=== PATIENT | female | born 1925 | race Caucasian/White ===

== ENCOUNTER 2016-06-30 08:23 | Inpatient (IN) ==
--- NOTE | 2016-06-30 09:00 | Emergency Department Note ---
SOB HPI - General Chief Complaint: Shortness of Breath/Dyspnea Stated Complaint: Shortness of breath, cough Time Seen by Provider: 06/30/16 08:53 Source: EMS Mode of arrival: EMS Limitations: no limitations - History of Present Illness 89-year-old female who is brought in by EMS with a history of shortness of breath that she's had for last several days. She is very hard of hearing, history is obtained from the patient as well as the caregiver who is with her today. Caregiver called EMS today secondary to concerns about increased shortness of breath with any activity, also increased ankle swelling up. She does have a history of CHF. She normally gets around in her own home with a walker or a wheelchair, lives in her own home, has caregivers about 3 hours daily. Also has wound care come in once a day or once every few days for chronic lower leg ulcers. Denies any chest pain, or cough is nonproductive, she denies abdominal pain. Has had no nausea, vomiting or diarrhea. MD Complaint: shortness of breath - Related Data Home Medications Medication Instructions Recorded Confirmed aspirin 81 mg tablet,delayed 81 mg PO QDAY tab 10/05/14 06/30/16 release lisinopril 20 mg tablet 20 mg PO BID tab 10/05/14 06/30/16 metformin 500 mg tablet 500 mg PO QIDP tab 10/05/14 06/30/16 omega-3 fatty acids-fish oil 300 1 cap PO DAILY 10/05/14 06/30/16 mg-1,000 mg capsule,delayed release Furosemide [Lasix] 20 mg PO DAILY 06/30/16 06/30/16 Allergies Allergy/AdvReac Type Severity Reaction Status Date / Time lovastatin Allergy Intermediate Unknown Verified 06/30/16 08:34 Review of Systems All systems ED: reviewed and negative except as stated. Constitutional: Denies: fever, chills ENT ED: Denies: ear pain, throat pain Cardiovascular: Reports: dyspnea on exertion. Denies: chest pain Respiratory: Reports: cough Gastrointestinal: Denies: nausea, vomiting Genitourinary: Denies: dysuria Integumentary: Reports: rash, lesions Endocrine: Reports: fatigue Past Medical History - Past Medical History Medical history: Reports: arthritis (rheumatoid), CHF, diabetes, hyperlipidemia , hypertension, other (Hypertension, hypercholesterolemia, psoriasis, diabetes, hypertension. Past surgical historycataract surgery, left hip replacement) Surgical history ED: Reports: cataract, hip replacement, hysterectomy Family history: Reports: non-contributory - Social History smoking status: Former smoker Drug use: Reports: none Physical Exam - General Limitations: no limitations General appearance: alert, in no apparent distress - Head Head exam: atraumatic, normocephalic - Eye Eye exam: Present: normal appearance, PERRL, EOMI, conjunctival injection. Absent: periorbital tenderness - ENT ENT exam: normal exam, normal oropharynx - Neck Neck exam: Present: normal inspection, full ROM, trachea midline. Absent: tenderness, meningismus - Chest Chest inspection: Present: normal inspection, symmetric chest wall rise - Respiratory Respiratory exam: Present: respiratory distress, accessory muscle use, other ( Rales and rhonchi throughout) - Cardiovascular Cardiovascular exam: Present: regular rate, normal rhythm, systolic murmur, gallop - Abdominal Exam Abdominal exam: Present: soft, tenderness, normal bowel sounds, other ( cellulitic appearing pannus on the lower abdomen). Absent: distention, rigidity - Extremities Exam Extremities exam: Present: full ROM, pedal edema. Absent: calf tenderness - Back Exam Back exam: Present: normal inspection. Absent: CVA tenderness (R), CVA tenderness (L), paraspinal tenderness - Neurological Exam Neurological exam: Present: alert - Psychiatric Psychiatric exam: Present: normal affect - Skin Skin exam: Present: warm, dry, intact, rash, erythema, other (Skin rash to abdomen) Course - Reevaluation(s) Reevaluation #1: atient signed out to Dr. lyons 9 AM. Initial labs ordered, as well as chest x-ray and EKG. Vital Signs Temperature 98.9 F 06/30/16 08:24 Pulse Rate 74 06/30/16 08:24 Respiratory Rate 24 H 06/30/16 08:24 Blood Pressure 146/71 06/30/16 08:24 Pulse Oximetry (%) 97 06/30/16 08:24 Temperature 98.9 F 06/30/16 08:24 Pulse Rate 74 06/30/16 08:24 Respiratory Rate 24 H 06/30/16 08:24 Blood Pressure 146/71 06/30/16 08:24 Pulse Oximetry (%) 97 06/30/16 08:24 Disposition Referrals: Jennifer Franklin MD [Primary Care Provider] -
[2016-06-30] MEDS ORDERED: NITROGLYCERIN 1 GM OINT.TOP TD ONE (09:04)
[2016-06-30 09:44] LABS: Basophils # (Auto) 0 K/mcL (0.0-0.3); Basophils % (Auto) 0.2 % (0.0-2.0); Eosinophils # (Auto) 0.1 K/mcL (0.0-0.7); Granulocytes % (Auto) 85.5 % (38.0-78.0); Lymphocytes # (Auto) 0.3 K/mcL (1.5-4.8); Lymphocytes % (Auto) 4.8 % (15.5-49.0); Mean Cell Volume 90.8 fL (80.0-100.0); Mean Corpuscular HGB Conc 32.9 g/dL (31.0-36.0); Mean Corpuscular Hemoglobin 29.9 pg (26.0-34.0); Monocytes # (Auto) 0.5 K/mcL (0.1-0.9); Monocytes % (Auto) 7.5 % (1.0-12.0); Platelet Count 189 K/mcL (140-440); RBC 3.58 M/mcL (4.00-5.20); Red Cell Distribution Width 16.2 % (11.5-14.5)
--- NOTE | 2016-06-30 09:56 | XRay Report ---
CLINICAL INFORMATION: Cough TECHNIQUE: Upright PA and lateral chest x-ray COMPARISON: 01/26/2016, 01/24/2016, 05/05/2015 FINDINGS: Cardiomegaly, unchanged. Pulmonary vascularity is unremarkable. No pulmonary congestion. No pulmonary edema. There are bilateral pleural effusions, right larger than left. These are both small. No focal pulmonary parenchymal infiltrate. No evidence for pneumonia. No discrete pulmonary parenchymal mass. No interval change. 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 IMPRESSION: 1. Cardiomegaly. No pulmonary edema or significant pulmonary congestion 2. Bilateral small pleural effusions, right larger than left 3. No acute or focal pulmonary parenchymal consolidation Interpreted and Authenticated by: Ezekiel Jonas 06/30/16
[2016-06-30 10:13] LABS: ALT/SGPT 50 U/l (0-40); Albumin 3.6 gm/dL (3.2-5.2); Albumin/Globulin Ratio 1.5 (1.0-2.3); Alkaline Phosphatase 102 U/L (39-117); Blood Urea Nitrogen 26 mg/dl (8-23)
[2016-06-30 11:25] LABS: Appearance,Urine HAZY; Bacteria,Urine FEW /hpf (0); Bilirubin,Urine NEG (NEG); Color,Urine YELLOW; Glucose,Urine (UA) NEGATIVE (NEG); Leukocyte Esterase,Urine 500 /uL (NEG); Mucus,Urine FEW /hpf (0); Nitrate,Urine POS (NEG); Protein,Urine NEG (NEG); Specific Gravity,Urine 1.008 (1.000-1.035); Urine Blood 0.03 mg/dL (<0.03); Urine Hyaline Cast 5 /lpf (0-2); Urine RBC 2 /hpf (0-1); Urine Squamous Epithelial Cell 2 /hpf (0-4); Urine WBC 61 /hpf (0-4); Urobilinogen,Urine NEG (NEG)
[2016-06-30] MEDS ORDERED: SULFAMETHOXAZOLE/TRIMETHOPRIM 1 TABLET PO ONE (11:44)
--- NOTE | 2016-06-30 11:45 | Emergency Department Note ---
SOB HPI - General Chief Complaint: Shortness of Breath/Dyspnea Stated Complaint: Shortness of breath, cough Time Seen by Provider: 06/30/16 08:53 Source: EMS Mode of arrival: EMS Limitations: no limitations - Related Data Home Medications Medication Instructions Recorded Confirmed aspirin 81 mg tablet,delayed 81 mg PO QDAY tab 10/05/14 06/30/16 release lisinopril 20 mg tablet 20 mg PO BID tab 10/05/14 06/30/16 metformin 500 mg tablet 500 mg PO QIDP tab 10/05/14 06/30/16 omega-3 fatty acids-fish oil 300 1 cap PO DAILY 10/05/14 06/30/16 mg-1,000 mg capsule,delayed release Furosemide [Lasix] 20 mg PO DAILY 06/30/16 06/30/16 Previous Rx's Medication Instructions Recorded Sulfamethoxazole/Trimethoprim 1 tab PO BID #15 tablet 06/30/16 [Bactrim Ds] Allergies Allergy/AdvReac Type Severity Reaction Status Date / Time lovastatin Allergy Intermediate Unknown Verified 06/30/16 08:34 Review of Systems Constitutional: Denies: fever, chills ENT ED: Denies: ear pain, throat pain Cardiovascular: Reports: dyspnea on exertion. Denies: chest pain Respiratory: Reports: cough Gastrointestinal: Denies: nausea, vomiting Genitourinary: Denies: dysuria Integumentary: Reports: rash, lesions Endocrine: Reports: fatigue Past Medical History - Past Medical History Medical history: Reports: arthritis (rheumatoid), CHF, diabetes, hyperlipidemia , hypertension, other (Hypertension, hypercholesterolemia, psoriasis, diabetes, hypertension. Past surgical historycataract surgery, left hip replacement) Surgical history ED: Reports: cataract, hip replacement, hysterectomy - Social History Drug use: Reports: none Physical Exam - General Limitations: no limitations General appearance: alert, in no apparent distress Course Vital Signs Temperature 98.9 F 06/30/16 08:24 Pulse Rate 74 06/30/16 08:24 Respiratory Rate 24 H 06/30/16 08:24 Blood Pressure 146/71 06/30/16 08:24 Pulse Oximetry (%) 97 06/30/16 08:24 Temperature 98.9 F 06/30/16 08:24 Pulse Rate 71 06/30/16 12:01 Respiratory Rate 20 06/30/16 12:01 Blood Pressure 156/71 06/30/16 12:01 Pulse Oximetry (%) 92 06/30/16 12:01 Shortness of Breath/Dyspnea - [facility] Narrative Medical decision making narrative: Patient's O2 saturation was in the mid 80s off oxygen. She seemed comfortable to come in because of shortness of breath for 3 days and edema and does have a elevated BNP. We will go ahead and admit her to the hospital for congestive heart failure. - Lab Data Lab results reviewed: Yes I reviewed the patient's lab results. Result diagrams: 06/30/16 09:03 06/30/16 09:13 Lab Results 06/30/16 06/30/16 06/30/16 Range/Units 09:03 09:13 09:13 WBC 6.8 (4.5-11.0) K/mcL RBC 3.58 L (4.00-5.20) M/mcL Hgb 10.7 L (12.0-15.0) g/dL Hct 32.5 L (36.0-48.0) % MCV 90.8 (80.0-100.0) fL MCH 29.9 (26.0-34.0) pg MCHC 32.9 (31.0-36.0) g/dL RDW 16.2 H (11.5-14.5) % Plt Count 189 (140-440) K/mcL MPV 11.9 H (7.4-10.4) fL Gran % 85.5 H (38.0-78.0) % Lymph % (Auto) 4.8 L (15.5-49.0) % [place] % (Auto) 7.5 (1.0-12.0) % Eos % (Auto) 2.0 (0.0-7.0) % Baso % (Auto) 0.2 (0.0-2.0) % Gran # 5.8 (1.8-8.0) K/mcL Lymph # 0.3 L (1.5-4.8) K/mcL [place] # 0.5 (0.1-0.9) K/mcL Eos # 0.1 (0.0-0.7) K/mcL Baso # 0 (0.0-0.3) K/mcL Sodium 141 (133-145) mmol/L Potassium 4.6 (3.3-5.1) mmol/L Chloride 103 (96-108) mmol/L Carbon Dioxide 24 (22-30) mmol/L Anion Gap 14.0 (8-16) BUN 26 H (8-23) mg/dl Creatinine 0.8 (0.6-1.1) mg/dl GFR Calculation 65 Glucose 161 H (70-105) mg/dL Calcium 9.2 (8.6-10.4) mg/dl Total Bilirubin 0.5 (0.0-1.0) mg/dL AST 42 H (0-37) U/l ALT 50 H (0-40) U/l Alkaline Phosphatase 102 (39-117) U/L Troponin T < 0.01 (0-0.03) ng/ml NT-Pro-B Natriuret Pep 64718.0 H (0-450) pg/ml Total Protein 6.0 (5.9-8.4) gm/dL Albumin 3.6 (3.2-5.2) gm/dL Globulin 2.4 (2.2-3.7) gm/dL Albumin/Globulin Ratio 1.5 (1.0-2.3) Urine Color Urine Appearance Urine pH (5.0-9.0) Ur Specific [place] (1.000-1.035) Urine Protein (NEG) mg/dL Urine Glucose (UA) (NEG) mg/dL Urine Ketones (NEG) mg/dL Urine Occult Blood (<0.03) mg/dL Urine Nitrate (NEG) Urine Bilirubin (NEG) mg/dL Urine Urobilinogen (NEG) mg/dL Ur Leukocyte Esterase (NEG) /uL Urine RBC (0-1) /hpf Urine WBC (0-4) /hpf Ur Squamous Epith Cells (0-4) /hpf Urine Bacteria (0) /hpf Hyaline Casts (0-2) /lpf Urine Mucus (0) /hpf Ur Culture Indicated? 06/30/16 Range/Units 10:36 WBC (4.5-11.0) K/mcL RBC (4.00-5.20) M/mcL Hgb (12.0-15.0) g/dL Hct (36.0-48.0) % MCV (80.0-100.0) fL MCH (26.0-34.0) pg MCHC (31.0-36.0) g/dL RDW (11.5-14.5) % Plt Count (140-440) K/mcL MPV (7.4-10.4) fL Gran % (38.0-78.0) % Lymph % (Auto) (15.5-49.0) % [place] % (Auto) (1.0-12.0) % Eos % (Auto) (0.0-7.0) % Baso % (Auto) (0.0-2.0) % Gran # (1.8-8.0) K/mcL Lymph # (1.5-4.8) K/mcL [place] # (0.1-0.9) K/mcL Eos # (0.0-0.7) K/mcL Baso # (0.0-0.3) K/mcL Sodium (133-145) mmol/L Potassium (3.3-5.1) mmol/L Chloride (96-108) mmol/L Carbon Dioxide (22-30) mmol/L Anion Gap (8-16) BUN (8-23) mg/dl Creatinine (0.6-1.1) mg/dl GFR Calculation Glucose (70-105) mg/dL Calcium (8.6-10.4) mg/dl Total Bilirubin (0.0-1.0) mg/dL AST (0-37) U/l ALT (0-40) U/l Alkaline Phosphatase (39-117) U/L Troponin T (0-0.03) ng/ml NT-Pro-B Natriuret Pep (0-450) pg/ml Total Protein (5.9-8.4) gm/dL Albumin (3.2-5.2) gm/dL Globulin (2.2-3.7) gm/dL Albumin/Globulin Ratio (1.0-2.3) Urine Color Yellow Urine Appearance Hazy Urine pH 5.0 (5.0-9.0) Ur Specific [place] 1.008 (1.000-1.035) Urine Protein Neg (NEG) mg/dL Urine Glucose (UA) Negative (NEG) mg/dL Urine Ketones Neg (NEG) mg/dL Urine Occult Blood 0.03 A (<0.03) mg/dL Urine Nitrate Pos A (NEG) Urine Bilirubin Neg (NEG) mg/dL Urine Urobilinogen Neg (NEG) mg/dL Ur Leukocyte Esterase 500 A (NEG) /uL Urine RBC 2 H (0-1) /hpf Urine WBC 61 H (0-4) /hpf Ur Squamous Epith Cells 2 (0-4) /hpf Urine Bacteria Few A (0) /hpf Hyaline Casts 5 H (0-2) /lpf Urine Mucus Few (0) /hpf Ur Culture Indicated? Yes - Radiology Data Chest x-ray read as cardiomegaly without heart failure Disposition Clinical Impression: Urinary tract infection, Candidiasis, Congestive heart failure Disposition: Xfer As Inpt ([facility]) Prescriptions: Sulfamethoxazole/Trimethoprim [Bactrim Ds] 1 tab PO BID #15 tablet Referrals: Jennifer Franklin MD [Primary Care Provider] - Time of Disposition: 12:00
--- NOTE | 2016-06-30 12:56 | Internal Med History&Physical ---
Medical - H&P: HPI Patient information: Note initiated : 06/30/16 at 12:45 pm Patient: Raisa Sharma 89 y/o F admitted on for Shortness of breath, cough. Chief complaint: shortness of breath History of present illness: Ms. Sharma is a 89 year old female with a history of coronary disease, diabetes ,CHF. She presents to the emergency room complaining of shortness of breath for the last 3 days. ER evaluation reports O2 saturations in the low 80s on room air elevated BNP, negative troponin. Urinalysis also shows evidence of ongoing UTI. Her caregiver reportedly asks that she be placed in a halfway regarding level of care. the patient reports that she caught a cold about 3 weeks ago and has never gotten rid of the cough. -she was having enough trouble breathing today, that her caregiver convinced her to come to the emergency room for evaluation. She thinks she has had some chills and some fever, but not consistent. She did have a very sore throat, but that has improved. she says she feels like she is bringing up something with her cough, but is never able to spit anything out. She denies feeling significantly short of breath, but her caregiver reports she has been sleeping upright lately. The patient denies diarrhea, but the caregiver reportsher stools have been very looseever [facility] The patient complains of early satiety ever since then, and prudenceshe feels full after just a few bites. -her baseline, according to her caregiver, is that she really doesn't walk much. She says at most, she will walk about 100 feet but her preference isto transfer from bed to wheelchair and wheelchair to commode, and otherwise spend most of her timein the wheelchair. She has several caregivers that come into her home There is one there for 12 hours in the evening, and another that is there for a few hours in the morning and another who often stops by in the evening. Otherwise, the patient denies significant changes and eye or ear symptoms, painful sinuses, chest pain or palpitations, nausea or vomiting constipation or rectal bleeding, or dysuria. -the patient has been followed by Dr. Albarran of wound care for leg ulcers that started after her last admission where she had falls and skin tears. She says she has been released by Dr. Albarran but a home health nurse still comes in once a week to address her right giraldo shallow ulcer as well as a small sacral decubitus ulcer. her caregiver reports that she is often incontinent of urine and and wears depends and often refuses to be changedmore than 3 times a day Today,the patient declines Hall catheter as she is sure this will do more harm than good. past medical history: admission January 2016 for decompensated CHF, complicated UTI, iron deficiency anemia ,lower extremity skin tears after fall with cellulitis. coronary artery disease CHF Neuropathy Hypertension Type 2 diabetes DJD rheumatoid arthritis Hyperlipidemia Psoriasis? renal insufficiency Obesity Uterine cancer Mild memory loss Pneumonia, April 2015 surgical history: Cataract surgery, left hip replacement, hysterectomy Current medications;the patient does not bring a list in with her so is a little bit uncertain: lisinopril 20 mg twice a day Aspirin 81 mg daily Lasix 20 mg daily Fish oil 1000 mg daily Metformin 500 mg 4 times a day 1 dose of BactrimDS was given by mouth in the emergency room She previously took amitriptyline for neuropathy, but thinks she no longer takes that. Glipizide 5 mg every morning hydrocodoneTylenol, rarely for pain She is unsure if she takes HCTZ Multivitamin daily Red yeast rice 2 capsules daily allergies: Lovastatin Social history:The patient apparently lives in her own home with a visiting caregiver. She denies history of alcohol, drug use. the patient smoked for 10 years, and quit in 1991. She is a .Her son lives in [place], and she has no local family. family history: mother had lung cancer; father had COPDandsome kind of kidney disease; siblings had kidney disease Medical - H&P: Meds Home Medications Medication Instructions Recorded Confirmed Type aspirin 81 mg tablet,delayed 81 mg PO QDAY tab 10/05/14 06/30/16 History release lisinopril 20 mg tablet 20 mg PO DAILY tab 10/05/14 06/30/16 History metformin 500 mg tablet 500 mg PO QIDP tab 10/05/14 06/30/16 History omega-3 fatty acids-fish oil 300 1 cap PO DAILY 10/05/14 06/30/16 History mg-1,000 mg capsule,delayed release Furosemide [Lasix] 20 mg PO DAILY 06/30/16 06/30/16 History HYDROcodone/ACETAMINOPHEN 1 tab PO TIDP PRN 06/30/16 06/30/16 History [Hydrocodon-Acetaminophen 5-325] Multivitamin [Multi-Day Vitamins] 1 tab PO DAILY 06/30/16 06/30/16 History Red Yeast Rice 1 cap PO HS 06/30/16 06/30/16 History glipiZIDE [Glucotrol] 5 mg PO DAILY 06/30/16 06/30/16 History Allergies Allergy/AdvReac Type Severity Reaction Status Date / Time lovastatin Allergy Intermediate Cramping Verified 06/30/16 15:32 of the Muscles tramadol AdvReac Verified 06/30/16 15:08 Medical - H&P: Exam - Constitutional Vitals: Temp Pulse Resp BP Pulse Ox 98.9 F 71 20 156/71 95 06/30/16 08:24 06/30/16 12:01 06/30/16 12:01 06/30/16 12:01 06/30/16 12:32 on exam, this is an overweight, elderly white female in no acute distress. She is extremely hard of hearing head: Normocephalic, atraumatic Eyes: PERRLA, EOMI, anicteric. Normal conjunctiva. Ears: Left TM is clear. Right canal is clear. There seems to be an old TM perforation. Pharynx: She has an upper plate in place She is missing quite a few teeth in the lower jaw. Posterior pharynx is not well seen. neck: Appears supple, without obvious JVD thyromegaly, lymphadenopathy, bruits. Cardiac exam: Shows regular rate and rhythm with a 3/6 systolic ejection murmur heard throughout the precordium. No rubs or gallops are noted. Lungs: She has a few crackles at bases but otherwise no significant rhonchi or wheezes. Abdomen:Is obese, with some mild vague tenderness to palpation. There is no guarding or rebound. Bowel sounds are active. Extremities:She has about 1+edema of the lower legs. There is also a shallow ulcer noted of her right giraldo. Skin:Shows a pink rash in her skin folds in the groin and under her pannus. Neurologic exam: She is alert and oriented, and quite interactive. She is extremely hard of hearing. Motor exam is grossly nonfocal. Medical - H&P: Reslt - Labs CBC & Chem 7: 06/30/16 09:03 06/30/16 09:13 Labs: Short CBC 06/30/16 06/30/16 06/30/16 Range/Units 09:03 09:13 09:13 WBC 6.8 (4.5-11.0) K/mcL RBC 3.58 L (4.00-5.20) M/mcL Hgb 10.7 L (12.0-15.0) g/dL Hct 32.5 L (36.0-48.0) % MCV 90.8 (80.0-100.0) fL MCH 29.9 (26.0-34.0) pg MCHC 32.9 (31.0-36.0) g/dL RDW 16.2 H (11.5-14.5) % Plt Count 189 (140-440) K/mcL MPV 11.9 H (7.4-10.4) fL Gran % 85.5 H (38.0-78.0) % Lymph % (Auto) 4.8 L (15.5-49.0) % [place] % (Auto) 7.5 (1.0-12.0) % Eos % (Auto) 2.0 (0.0-7.0) % Baso % (Auto) 0.2 (0.0-2.0) % Gran # 5.8 (1.8-8.0) K/mcL Lymph # 0.3 L (1.5-4.8) K/mcL [place] # 0.5 (0.1-0.9) K/mcL Eos # 0.1 (0.0-0.7) K/mcL Baso # 0 (0.0-0.3) K/mcL Sodium 141 (133-145) mmol/L Potassium 4.6 (3.3-5.1) mmol/L Chloride 103 (96-108) mmol/L Carbon Dioxide 24 (22-30) mmol/L Anion Gap 14.0 (8-16) BUN 26 H (8-23) mg/dl Creatinine 0.8 (0.6-1.1) mg/dl GFR Calculation 65 Glucose 161 H (70-105) mg/dL Calcium 9.2 (8.6-10.4) mg/dl Total Bilirubin 0.5 (0.0-1.0) mg/dL AST 42 H (0-37) U/l ALT 50 H (0-40) U/l Alkaline Phosphatase 102 (39-117) U/L Troponin T < 0.01 (0-0.03) ng/ml NT-Pro-B Natriuret Pep 61505.0 H (0-450) pg/ml Total Protein 6.0 (5.9-8.4) gm/dL Albumin 3.6 (3.2-5.2) gm/dL Globulin 2.4 (2.2-3.7) gm/dL Albumin/Globulin Ratio 1.5 (1.0-2.3) Urine Color Urine Appearance Urine pH (5.0-9.0) Ur Specific Fate (1.000-1.035) Urine Protein (NEG) mg/dL Urine Glucose (UA) (NEG) mg/dL Urine Ketones (NEG) mg/dL Urine Occult Blood (<0.03) mg/dL Urine Nitrate (NEG) Urine Bilirubin (NEG) mg/dL Urine Urobilinogen (NEG) mg/dL Ur Leukocyte Esterase (NEG) /uL Urine RBC (0-1) /hpf Urine WBC (0-4) /hpf Ur Squamous Epith Cells (0-4) /hpf Urine Bacteria (0) /hpf Hyaline Casts (0-2) /lpf Urine Mucus (0) /hpf Ur Culture Indicated? 06/30/16 Range/Units 10:36 WBC (4.5-11.0) K/mcL RBC (4.00-5.20) M/mcL Hgb (12.0-15.0) g/dL Hct (36.0-48.0) % MCV (80.0-100.0) fL MCH (26.0-34.0) pg MCHC (31.0-36.0) g/dL RDW (11.5-14.5) % Plt Count (140-440) K/mcL MPV (7.4-10.4) fL Gran % (38.0-78.0) % Lymph % (Auto) (15.5-49.0) % [place] % (Auto) (1.0-12.0) % Eos % (Auto) (0.0-7.0) % Baso % (Auto) (0.0-2.0) % Gran # (1.8-8.0) K/mcL Lymph # (1.5-4.8) K/mcL [place] # (0.1-0.9) K/mcL Eos # (0.0-0.7) K/mcL Baso # (0.0-0.3) K/mcL Sodium (133-145) mmol/L Potassium (3.3-5.1) mmol/L Chloride (96-108) mmol/L Carbon Dioxide (22-30) mmol/L Anion Gap (8-16) BUN (8-23) mg/dl Creatinine (0.6-1.1) mg/dl GFR Calculation Glucose (70-105) mg/dL Calcium (8.6-10.4) mg/dl Total Bilirubin (0.0-1.0) mg/dL AST (0-37) U/l ALT (0-40) U/l Alkaline Phosphatase (39-117) U/L Troponin T (0-0.03) ng/ml NT-Pro-B Natriuret Pep (0-450) pg/ml Total Protein (5.9-8.4) gm/dL Albumin (3.2-5.2) gm/dL Globulin (2.2-3.7) gm/dL Albumin/Globulin Ratio (1.0-2.3) Urine Color Yellow Urine Appearance Hazy Urine pH 5.0 (5.0-9.0) Ur Specific Fate 1.008 (1.000-1.035) Urine Protein Neg (NEG) mg/dL Urine Glucose (UA) Negative (NEG) mg/dL Urine Ketones Neg (NEG) mg/dL Urine Occult Blood 0.03 A (<0.03) mg/dL Urine Nitrate Pos A (NEG) Urine Bilirubin Neg (NEG) mg/dL Urine Urobilinogen Neg (NEG) mg/dL Ur Leukocyte Esterase 500 A (NEG) /uL Urine RBC 2 H (0-1) /hpf Urine WBC 61 H (0-4) /hpf Ur Squamous Epith Cells 2 (0-4) /hpf Urine Bacteria Few A (0) /hpf Hyaline Casts 5 H (0-2) /lpf Urine Mucus Few (0) /hpf Ur Culture Indicated? Yes [facility] 06/30/16 09:13 Sodium 141 Potassium 4.6 Chloride 103 Carbon Dioxide 24 BUN 26 H Creatinine 0.8 Glucose 161 H Calcium 9.2 Cardiac Enzymes 06/30/16 Range/Units 09:13 Troponin T < 0.01 (0-0.03) ng/ml Liver Function 06/30/16 Range/Units 09:13 Total Bilirubin 0.5 (0.0-1.0) mg/dL AST 42 H (0-37) U/l ALT 50 H (0-40) U/l Alkaline Phosphatase 102 (39-117) U/L Albumin 3.6 (3.2-5.2) gm/dL Urine 06/30/16 Range/Units 10:36 Urine Color Yellow Urine Appearance Hazy Urine pH 5.0 (5.0-9.0) Ur Specific Fate 1.008 (1.000-1.035) Urine Protein Neg (NEG) mg/dL Urine Glucose (UA) Negative (NEG) mg/dL EKG: Appears to show sinus rhythm with a rate of about 90,left axis deviation, bifascicular block, appearance similar to January 26, 2016 chest x-ray shows cardiomegaly but no obvious pulmonary edema. There are bilateral pleural effusions, right greater than left, small. No significant change from May 05, 2015. echocardiogram, done April 2016: I do not see a formal report, but a worksheet shows left atrial enlargement, left ventricular ejection fraction of 53% moderate mitral and tricuspid regurgitation. echocardiogram, done January 2016: preserved left ventricular systolic function , mild to moderate LVH; ejection fraction 60%. moderate to severe aortic stenosis. Moderate mitral regurgitation. Left atrial enlargement. Right- sided chamber enlargement with moderate to severe pulmonary hypertension and tricuspid regurgitation. Medical - H&P: A/P (1) DM type 2 (diabetes mellitus, type 2) Current visit: Yes Status: Chronic (2) Congestive heart failure Current visit: Yes Status: Acute (3) Urinary tract infection Current visit: Yes Status: Acute (4) Hypertension Current visit: No Status: Chronic - Narrative A/P Narrative: #1. Cardiac. -Patient presents with room air hypoxemia and elevated BNP, consistent with CHF exacerbation. Given her comorbidities and weakness she will be admitted for aggressive management with IV diuretics close monitoring of vital signs and electrolytes ; oxygen supplementation. -telemetry. -support stockings. -echocardiogram was done in April, and shows reasonable left ventricular ejection fraction. There was recent evidence of pulmonary hypertension also. -History of hypertension. Monitor closely continue lisinopril, add Lasix.continue aspirin. #2. . Patient presents with abnormal urinalysis, and history of complex UTIs. urinalysis is consistent with ongoing urinary tract infection. culture from January grew Proteus, Stenotrophomonas, coag-negative staph, and corynebacterium.the Proteus and montrell bacterium were multiply resistant. -it is unclear to me that she is symptomatic. I will consider a urology consult. #3. Endocrine. -Type 2 diabetes. Hold metformin regarding diuresis. Cover with sliding scale insulin. continue lisinopril and aspirin. Patient apparently does not tolerate statins. #4. rheumatologic. -Rheumatoid arthritis.degenerative joint disease. Pain meds as needed. #5. CODE STATUS: patient states she wishes to have no CODE STATUS #6. DVT prophylaxis:Subcutaneous Lovenox. #7. Disposition:Social work consult. Physical therapy consult. #8. Neuropathy. the patient is very unsure of whether she has been taking Elavil for this lately. #9. History of iron deficiency anemia.continue multivitamin. #10. Pulmonary. This patient does have hypoxia and dyspnea. She also is leading a very sedentary life. -Check d-dimer, and consider CT angiogram if this is positive. #11. Skin ulcers. Continue local wound care. Add barrier ointment, as patient declines Hall catheter, and has urine incontinence. So far today, this visit has taken approximately 70 minutes to review her records review her case with the [facility], interview and examine her, and write orders.
[2016-06-30] MEDS ORDERED: guaiFENesin/CODEINE 10 ML UDC PO ONE (13:38)
[2016-06-30] MEDS ORDERED: NALOXONE HCL 0.4 MG/ML VIAL IV PRN (14:02)
[2016-06-30] MEDS ORDERED: DEXTROSE 50% 50 ML VIAL IV PRN (14:02)
[2016-06-30] MEDS ORDERED: ONDANSETRON ODT 4 MG TABLET SL PRN (14:02)
[2016-06-30] MEDS ORDERED: MAGNESIUM HYDROXIDE 30 ML ORAL.SUSP PO PRN (14:02)
[2016-06-30] MEDS ORDERED: ACETAMINOPHEN 325 MG TABLET PO PRN (14:02)
[2016-06-30] MEDS ORDERED: DOCUSATE SODIUM 100 MG CAPSULE PO PRN (14:02)
[2016-06-30 15:11] LABS: ALT/SGPT 49 U/l (0-40); Albumin 3.7 gm/dL (3.2-5.2); Albumin/Globulin Ratio 1.5 (1.0-2.3); Alkaline Phosphatase 102 U/L (39-117); Bilirubin,Direct < 0.2 mg/dL (0.0-0.3); Blood Urea Nitrogen 27 mg/dl (8-23); Gamma Glutamyl Transpeptidase 36 U/L (5-36); Uric Acid 6.4 mg/dL (2.5-8.0)
[2016-06-30] MEDS: FUROSEMIDE 20 MG/2 ML VIAL IV SCH (15:26)
[2016-06-30 16:28] LABS: Hemoglobin A1C 6.1 % HGB (4.0-6.0)
[2016-06-30] MEDS: INSULIN LISPRO 1 UNIT/0.01 ML UNIT SQ SCH ×2 (16:37→20:38)
[2016-06-30] MEDS ORDERED: guaiFENesin/CODEINE 10 ML UDC PO PRN (20:15)
[2016-06-30] MEDS ORDERED: LORazepam 0.5 MG TABLET PO PRN (20:15)
[2016-06-30] MEDS: LISINOPRIL 20 MG TABLET PO SCH ×2 (20:38→21:43)
[2016-06-30] MEDS ORDERED: LISINOPRIL 20 MG TABLET PO SCH (21:00)
[2016-07-01 05:40] LABS: Basophils # (Auto) 0 K/mcL (0.0-0.3); Basophils % (Auto) 0.2 % (0.0-2.0); Eosinophils # (Auto) 0.2 K/mcL (0.0-0.7); Granulocytes % (Auto) 76.3 % (38.0-78.0); Lymphocytes # (Auto) 0.5 K/mcL (1.5-4.8); Lymphocytes % (Auto) 8.3 % (15.5-49.0); Mean Corpuscular HGB Conc 31.7 g/dL (31.0-36.0); Mean Corpuscular Hemoglobin 29.2 pg (26.0-34.0); Monocytes # (Auto) 0.6 K/mcL (0.1-0.9); Monocytes % (Auto) 11.2 % (1.0-12.0); Platelet Count 147 K/mcL (140-440); RBC 3.32 M/mcL (4.00-5.20); Red Cell Distribution Width 16.9 % (11.5-14.5)
[2016-07-01 05:56] LABS: ALT/SGPT 44 U/l (0-40); Albumin 3.1 gm/dL (3.2-5.2); Albumin/Globulin Ratio 1.3 (1.0-2.3); Alkaline Phosphatase 98 U/L (39-117); Bilirubin,Direct < 0.2 mg/dL (0.0-0.3); Blood Urea Nitrogen 28 mg/dl (8-23); Gamma Glutamyl Transpeptidase 40 U/L (5-36); Magnesium 1.9 mg/dL (1.6-2.5)
[2016-07-01] MEDS: glipiZIDE 5 MG TABLET PO SCH (08:19)
[2016-07-01] MEDS: INSULIN LISPRO 1 UNIT/0.01 ML UNIT SQ SCH ×4 (08:19→20:51)
[2016-07-01] MEDS: FUROSEMIDE 20 MG/2 ML VIAL IV SCH ×2 (08:20→16:07)
[2016-07-01] MEDS: ASPIRIN 81 MG TAB.CHEW PO SCH (08:20)
[2016-07-01] MEDS: LISINOPRIL 20 MG TABLET PO SCH ×2 (08:20→20:51)
[2016-07-01] MEDS: ENOXAPARIN 40 MG/0.4 ML SYRINGE SQ SCH (08:20)
[2016-07-01] MEDS: MULTIVIT,THER IRON,CA,FA & MIN 1 TABLET PO SCH (08:21)
[2016-07-01] MEDS ORDERED: ASPIRIN 81 MG TAB.CHEW PO SCH (09:00)
--- NOTE | 2016-07-01 12:36 | XRay Report ---
CLINICAL INFORMATION: CHF COMPARISON: 06/30/2016 FINDINGS: The heart is moderately large, but unchanged. Mediastinum is unremarkable. Pulmonary vessels are mildly distended but slightly decreased. No definite edema. Small right pleural effusion noted. IMPRESSION: Mild CHF - improved Interpreted and Authenticated by: Ezekiel Duque 07/01/16
--- NOTE | 2016-07-01 12:42 | Internal Med Progress Note ---
Medical - PN: Subj Patient information: Note initiated : 07/01/16 at 12:42 pm Service Date, if different from initiated Date: [] Patient: Raisa Sharma 89 y/o F admitted on 06/30/16 for SOB, Cough/UTI, Candidiasis, CHF. Chief Complaint: [] Interval history: Chief complaint: shortness of breath June 30, 2016: History of present illness: Ms. Sharma is a 89 year old female with a history of coronary disease, diabetes ,CHF. She presents to the emergency room complaining of shortness of breath for the last 3 days. ER evaluation reports O2 saturations in the low 80s on room air elevated BNP, negative troponin. Urinalysis also shows evidence of ongoing UTI. Her caregiver reportedly asks that she be placed in a fpc regarding level of care. the patient reports that she caught a cold about 3 weeks ago and has never gotten rid of the cough. -she was having enough trouble breathing today, that her caregiver convinced her to come to the emergency room for evaluation. She thinks she has had some chills and some fever, but not consistent. She did have a very sore throat, but that has improved. she says she feels like she is bringing up something with her cough, but is never able to spit anything out. She denies feeling significantly short of breath, but her caregiver reports she has been sleeping upright lately. The patient denies diarrhea, but the caregiver reportsher stools have been very looseever [place] [facility] [place] [facility] [place] [place] The patient complains of early satiety ever since then, and notesshe feels full after just a few bites. -her baseline, according to her caregiver, is that she really doesn't walk much. She says at most, she will walk about 100 feet but her preference isto transfer from bed to wheelchair and wheelchair to commode, and otherwise spend most of her timein the wheelchair. She has several caregivers that come into her home There is one there for 12 hours in the evening, and another that is there for a few hours in the morning and another who often stops by in the evening. Otherwise, the patient denies significant changes and eye or ear symptoms, painful sinuses, chest pain or palpitations, nausea or vomiting constipation or rectal bleeding, or dysuria. -the patient has been followed by Dr. Albarran of wound care for leg ulcers that started after her last admission where she had falls and skin tears. She says she has been released by Dr. Albarran but a home health nurse still comes in once a week to address her right giraldo shallow ulcer as well as a small sacral decubitus ulcer. her caregiver reports that she is often incontinent of urine and and wears depends and often refuses to be changedmore than 3 times a day Today,the patient declines Hall catheter as she is sure this will do more harm than good. July 01: overnight, the patient became quite agitated at times, and became very belligerent with staff, sometimes hitting them and yelling at them. She has very definite opinions on whether or not her depends need changing, whether her wounds need to be dressed, or whether she needs to be repositioned and argues aggressively with anyone who does not do exactly what she wants at the time. This morning she would not let physical therapy due to her initial evaluation, and said insisting that they let her transfer from bed to wheelchair in a manner that did not follow their guidelines. -she believes her breathing is a bit better than yesterday. She initially refused a Hall catheter, but finally allow that, when she realized how much the Lasix was making her urinate. -her urine still looksshe is chronically infected. I did ask Dr. Patricia of urology to evaluate her,to see if perhaps there is something structural that might be causing ongoing UTI. Dr. Patricia did not think it was worthpursuing any further workup and said not to treat her if she does not appear to be symptomatic. The patient did report some dysuria to her caregivers at home, but denied it here yesterday, prior to her Hall catheter. -our staff spoke with her sonLIZ, who lives in [place] now. He says that his mother is always quite difficult, and that he moved here to take care of her for 3 months,but could not get her to cooperate with things, so he finally left town. -she was quite upset this morning when we did not give her her metformin. This was held because they plan on pursuing aggressive diuresis. We are covering with sliding scale insulin. -d-dimer was checked last night, and in view of her shortness of breath and sedentary lifestyle. It was very minimally elevated above normal, and I do not feel warrants a CT angiogram. - Constitutional Vitals: Vital Signs Temp Pulse Resp BP Pulse Ox 97.4 F 70 18 178/64 96 07/01/16 07:56 07/01/16 04:00 07/01/16 07:56 07/01/16 07:56 07/01/16 07:56 Period Temp Pulse Resp BP Sys/Manley Pulse Ox Last 24 Hr 97.3 F-99.7 F 68-74 16-28 133-178/54-68 90-96 Intake and Output 06/30/16 07/01/16 07/01/16 21:59 05:59 13:59 Intake Total 240 / 240 950 / 950 Output Total 252 / 252 525 / 525 750 / 750 Balance -12 / -12 -525 / -525 200 / 200 Weight 193 lb 8 oz Intake & Output: Intake & Output 06/30/16 07/01/16 07/01/16 21:59 05:59 13:59 Intake Total 240 / 240 950 / 950 Output Total 252 / 252 525 / 525 750 / 750 Balance -12 / -12 -525 / -525 200 / 200 Weight 193 lb 8 oz Intake: Oral 240 / 240 950 / 950 Output: Urine Catheter Amount 250 / 250 525 / 525 750 / 750 # of times incontinent of 2 / 2 urine Other: Meal Dinner Lunch Percent of Meal Consumed 75% 100% # Voids 1 on exam, this is an overweight, elderly white female . She is extremely hard of hearing. She is quite argumentative when I first entered the room today, then did calm down. She became tearful at one point, saying no one will listen to her about how she knows what works for her. . neck: Appears supple, without obvious JVD Cardiac exam: Shows regular rate and rhythm with a 3/6 systolic ejection murmur heard throughout the precordium. lungs: She does have crackles about shelter up bilaterally. She has a frequent , nonproductive, cough. Abdomen:Is obese, with some mild vague tenderness to palpation. There is no guarding or rebound. Bowel sounds are active. Extremities:She has about 1+edema of the lower legs. There is also a shallow ulcer noted of her right giraldo. Neurologic exam: She is alert and oriented, and quite interactive. She is extremely hard of hearing. unfortunately, she became quite agitated last night, and again this morning. She gets very upset when anyone tries to make hermove in a different position or moving a different way, then what she believes is good forher skin or her situation. Motor exam is grossly nonfocal. Medical - PN: Obj Da - Labs CBC & Chem 7: 07/01/16 04:34 07/01/16 04:35 Labs: Abnormal Lab Results 07/01/16 07/01/16 06/30/16 04:35 04:34 18:30 RBC 3.32 L Hgb 9.7 L Hct 30.5 L RDW 16.9 H MPV 10.7 H Lymph % (Auto) 8.3 L Lymph # 0.5 L D-Dimer 0.41 H BUN 28 H Glucose 145 H GGT 40 H ALT 44 H Total Protein 5.4 L Albumin 3.1 L July 01:.patient diuresed a little over 500 mL overnight -urine culture is growing greater than 100,000 Escherichia coli. Sensitivities pending. June 30:D-dimer is minimally elevated at 0.41 EKG: Appears to show sinus rhythm with a rate of about 90,left axis deviation, bifascicular block, appearance similar to January 26, 2016 chest x-ray shows cardiomegaly but no obvious pulmonary edema. There are bilateral pleural effusions, right greater than left, small. No significant change from May 05, 2015. echocardiogram, done April 2016: I do not see a formal report, but a worksheet shows left atrial enlargement, left ventricular ejection fraction of 53% moderate mitral and tricuspid regurgitation. echocardiogram, done January 2016: preserved left ventricular systolic function , mild to moderate LVH; ejection fraction 60%. moderate to severe aortic stenosis. Moderate mitral regurgitation. Left atrial enlargement. Right- sided chamber enlargement with moderate to severe pulmonary hypertension and tricuspid regurgitation. Meds: Medications Acetaminophen (Tylenol) 650 mg PO Q6HP PRN PRN Reason: PAIN/FEVER > 101 Acetaminophen/Hydrocodone Bitart ([place] 5/325mg) 1 tab PO TIDP PRN PRN Reason: Pain Aspirin (Aspirin) 81 mg PO DAILY ANA CRISTINA Last Admin: 07/01/16 08:20 Dose: 81 mg Dextrose (Dextrose 50%) 0 ml IV UD PRN PRN Reason: Hypoglycemia Diagnostic Test (Pha) (Accu-Chek) 1 each FS ACHS [facility] Last Admin: 07/01/16 12:03 Dose: 1 each Docusate Sodium (Colace) 100 mg PO BID PRN PRN Reason: Constipation Enoxaparin Sodium (Lovenox) 40 mg SQ DAILY [facility] Last Admin: 07/01/16 08:20 Dose: 40 mg Furosemide (Lasix) 20 mg IV BIDD [facility] Last Admin: 07/01/16 08:20 Dose: 20 mg Glipizide (Glucotrol) 5 mg PO ACB [facility] Last Admin: 07/01/16 08:19 Dose: 5 mg Guaifenesin/Codeine Phosphate (Robitussin Ac) 5 ml PO Q4HP PRN PRN Reason: Cough Insulin Human Lispro (Humalog) 0 unit SQ [facility] PRN Reason: Protocol Last Admin: 07/01/16 12:03 Dose: 2 unit Iron Carb/Multivit/Smokehouse Worker/Folic Acid (Multivitamin W/Minerals) 1 tab PO DAILY [facility] Last Admin: 07/01/16 08:21 Dose: 1 tab Lisinopril (Zestril) 20 mg PO BID [facility] Last Admin: 07/01/16 08:20 Dose: 20 mg Lorazepam (Ativan) 0.5 mg PO Q4HP PRN PRN Reason: ANXIETY/SEDATION Magnesium Hydroxide (Milk Of Magnesia) 30 ml PO DAILYP PRN PRN Reason: Constipation Morphine Sulfate (Morphine) 1 mg IV Q1HP PRN PRN Reason: Shortness Of Breath Or Wheezing Naloxone HCl (Narcan) 0.1 mg IV Q2MIN PRN PRN Reason: Opiate Reversal Ondansetron HCl (Zofran Odt) 4 mg SL Q4HP PRN PRN Reason: Nausea And Vomiting Medical - PN: A/P - Time Spent With Patient Total time spent is greater than 50% in coordination of care (as documented) at patient's floor/unit and/or counseling patient: (1) DM type 2 (diabetes mellitus, type 2) Status: Chronic Current Visit: Yes (2) Congestive heart failure Status: Acute Current Visit: Yes (3) Urinary tract infection Status: Acute Current Visit: Yes (4) Hypertension Status: Chronic Current Visit: No - Narrative A/P Narrative: #1. Cardiac. -Patient presents with room air hypoxemia and elevated BNP, consistent with CHF exacerbation. Given her comorbidities and weakness she was admitted for aggressive management with IV diuretics close monitoring of vital signs and electrolytes ;oxygen supplementation. -telemetry. -echocardiogram was done in April, and shows reasonable left ventricular ejection fraction. There was recent evidence of pulmonary hypertension also. -she has diuresed somewhat overnight, and does feel a little short of breath. Continue with twice a day Lasix. -History of hypertension. Monitor closely continue lisinopril, add Lasix.continue aspirin. #2. . Patient presents with abnormal urinalysis, and history of complex UTIs. urinalysis is consistent with ongoing urinary tract infection. culture from January grew Proteus, Stenotrophomonas, coag-negative staph, and corynebacterium.the Proteus and montrell bacterium were multiply resistant. -because of her history of drug-resistant infections,I did ask Dr. Patricia of urology to evaluate her. He does not feel that she needs to have a UTI treated at this time,as she could not give a definite history of being symptomatic. #3. Endocrine. -Type 2 diabetes. Hold metformin regarding diuresis. Cover with sliding scale insulin. glucoses are running a bit high, and we can increase the sliding scale. continue lisinopril and aspirin. Patient apparently does not tolerate statins. #4. rheumatologic. -Rheumatoid arthritis.degenerative joint disease. Pain meds as needed. #5. CODE STATUS: patient states she wishes to have no CODE STATUS #6. DVT prophylaxis:Subcutaneous Lovenox. #7. Disposition:Social work consult. Physical therapy consult. #8. Neuropathy. the patient is very unsure of whether she has been taking Elavil for this lately. #9. History of iron deficiency anemia.continue multivitamin. #10. Pulmonary. This patient does have hypoxia and dyspnea. She also is leading a very sedentary life. -D-dimer was at the very upper end of normal. I don't think this warrants a CT scan. We will continue to treat her for CHF. #11. Skin ulcers. Continue local wound care. Add barrier ointment, Hall catheter. #12. dISPOSITION: i had a discussion with the patient today about how she has been treating staff. I discussed with her, that we have to follow the hospital policies, and cannot violate them just because it suitshow she does things at home. I reassured her that if she would let physical therapy do their evaluation , that they would then let her use her wheelchair. she seemed to misunderstand what it was they were asking her to do. she is very resistant to wound care and care Nurses will continue to try to educate her about the importance of these things. She did promise to try not to yell anymore, and to try to calmly convey her concerns to staff. pproximately 35 minutes was spent today, reviewing test results, interviewing and examining the patient, having a fairly prolonged discussion about her behavior, reviewing plan of care with staff, and writing orders. Medical - PN: Qual - VTE Deep Vein Thrombosis/Pulmonary Embolism Present on Admission: No
--- NOTE | 2016-07-01 13:18 | Consultation ---
DATE OF CONSULTATION: 07/01/2016 REQUESTING PHYSICIAN: Dr. Mendoza. HISTORY OF PRESENT ILLNESS: The patient is an 89-year-old lady who was admitted for shortness of breath. I was asked to see her because of recurrent urinary symptoms. I first saw the lady in 2014 and at that time had been placed on prophylactic antibiotics. She states that this helped and demanded to be kept on the antibiotics. I gave her 3 months' worth with the thought of weaning her down and treating her if she became symptomatic. She never returned for followup. In February of this year she did have three organisms and two had multidrug resistance. She states that she was not really symptomatic. At that time an ultrasound was obtained, which showed normal appearing kidneys. Recently she was having cough, fevers and chills and was admitted to the hospital. It does appear that she has E. coli infection but again is not symptomatic. She denies any burning, no frequency or urgency. She usually uses a diaper for her urinary incontinence. I have been asked to evaluate her. PAST MEDICAL HISTORY: Consistent for congestive heart failure, anemia, recurrent UTIs, skin tears with cellulitis, coronary artery disease, neuropathy, hypertension, type 2 diabetes, degenerative joint disease, obesity and uterine cancer. PAST SURGICAL HISTORY: Hysterectomy, left hip replacement, cataract surgery. CURRENT MEDICATIONS: 1. Lisinopril. 2. Lasix. 3. Metformin. 4. Glipizide. 5. Hydrocodone. 6. Multivitamin. ALLERGIES: LOVASTATIN. SOCIAL HISTORY: Lives in her own home. Denies alcohol or drug use and does not smoke. FAMILY HISTORY: Kidney disease. REVIEW OF SYSTEMS: CARDIAC: Denies any chest pain. RESPIRATORY: Positive shortness of breath, is using 02. GASTROINTESTINAL: Denies any constipation problems. GENITOURINARY: As above. The rest of 12-point review of systems is negative. PHYSICAL EXAMINATION: GENERAL: This is a pleasant lady in no apparent distress. She is hard of hearing. HEENT: Atraumatic, normocephalic. Extraocular movements are intact. Pupils are equal and reactive to light and accommodation. NECK: Supple. Trachea is midline. HEART: Regular rate and rhythm. LUNGS: Decreased sounds in the bases. ABDOMEN: Obese. No masses are felt. was deferred. EXTREMITIES: Without clubbing, cyanosis or edema. NEUROLOGIC: Intact. IMPRESSION: Patient with recurrent infections. This may be a colonization and as she is not symptomatic, I would probably not treat her. Anatomically, she has had an ultrasound done in 01/2016, which was normal. I feel at this point I would only treat her if she is symptomatic, I do not feel that she needs prophylactic antibiotics. I will plan to follow her up in the office upon discharge and we will follow up from there. JIM:devante Job ID: [id number] Doc ID: [id number] Hunter Patricia MD
[2016-07-02 06:02] LABS: Basophils # (Auto) 0 K/mcL (0.0-0.3); Basophils % (Auto) 0.2 % (0.0-2.0); Eosinophils # (Auto) 0.3 K/mcL (0.0-0.7); Eosinophils % (Auto) 5.8 % (0.0-7.0); Granulocytes % (Auto) 72.4 % (38.0-78.0); Lymphocytes # (Auto) 0.5 K/mcL (1.5-4.8); Lymphocytes % (Auto) 9.7 % (15.5-49.0); Mean Cell Volume 91.4 fL (80.0-100.0); Mean Corpuscular HGB Conc 32.3 g/dL (31.0-36.0); Mean Corpuscular Hemoglobin 29.5 pg (26.0-34.0); Monocytes # (Auto) 0.6 K/mcL (0.1-0.9); Monocytes % (Auto) 11.9 % (1.0-12.0); Platelet Count 152 K/mcL (140-440); RBC 3.47 M/mcL (4.00-5.20); Red Cell Distribution Width 16.2 % (11.5-14.5)
[2016-07-02 06:30] LABS: ALT/SGPT 35 U/l (0-40); Albumin/Globulin Ratio 1.3 (1.0-2.3); Alkaline Phosphatase 90 U/L (39-117); Bilirubin,Direct < 0.2 mg/dL (0.0-0.3); Blood Urea Nitrogen 32 mg/dl (8-23); Gamma Glutamyl Transpeptidase 38 U/L (5-36); Magnesium 2.1 mg/dL (1.6-2.5); Uric Acid 7.3 mg/dL (2.5-8.0)
[2016-07-02] MEDS: FUROSEMIDE 20 MG/2 ML VIAL IV SCH ×2 (08:17→16:02)
[2016-07-02] MEDS: glipiZIDE 5 MG TABLET PO SCH (08:17)
[2016-07-02] MEDS: INSULIN LISPRO 1 UNIT/0.01 ML UNIT SQ SCH ×4 (08:24→21:01)
[2016-07-02] MEDS: LISINOPRIL 20 MG TABLET PO SCH ×2 (08:36→21:02)
[2016-07-02] MEDS: ENOXAPARIN 40 MG/0.4 ML SYRINGE SQ SCH (08:36)
[2016-07-02] MEDS: ASPIRIN 81 MG TAB.CHEW PO SCH (08:37)
[2016-07-02] MEDS: MULTIVIT,THER IRON,CA,FA & MIN 1 TABLET PO SCH (08:41)
[2016-07-02] MEDS ORDERED: FUROSEMIDE 20 MG/2 ML VIAL IV ONE (17:30)
--- NOTE | 2016-07-02 18:00 | Internal Med Progress Note ---
Medical - PN: Subj Patient information: Note initiated : 07/02/16 at 5:58 pm Service Date, if different from initiated Date: [] Patient: Raisa Sharma 89 y/o F admitted on 06/30/16 for SOB, Cough/UTI, Candidiasis, CHF. Chief Complaint: [] Interval history: Chief complaint: shortness of breath June 30, 2016: History of present illness: Ms. Sharma is a 89 year old female with a history of coronary disease, diabetes ,CHF. She presents to the emergency room complaining of shortness of breath for the last 3 days. ER evaluation reports O2 saturations in the low 80s on room air elevated BNP, negative troponin. Urinalysis also shows evidence of ongoing UTI. Her caregiver reportedly asks that she be placed in a residential regarding level of care. the patient reports that she caught a cold about 3 weeks ago and has never gotten rid of the cough. -she was having enough trouble breathing today, that her caregiver convinced her to come to the emergency room for evaluation. She thinks she has had some chills and some fever, but not consistent. She did have a very sore throat, but that has improved. she says she feels like she is bringing up something with her cough, but is never able to spit anything out. She denies feeling significantly short of breath, but her caregiver reports she has been sleeping upright lately. The patient denies diarrhea, but the caregiver reportsher stools have [facility] very [facility]ever [facility] The patient complains of early satiety ever since then, and notesshe feels full after just a few bites. -her baseline, according to her caregiver, is that she really doesn't walk much. She says at most, she will walk about 100 feet but her preference isto transfer from bed to wheelchair and wheelchair to commode, and otherwise spend most of her timein the wheelchair. She has several caregivers that come into her home There is one there for 12 hours in the evening, and another that is there for a few hours in the morning and another who often stops by in the evening. Otherwise, the patient denies significant changes and eye or ear symptoms, painful sinuses, chest pain or palpitations, nausea or vomiting constipation or rectal bleeding, or dysuria. -the patient has been followed by Dr. Albarran of wound care for leg ulcers that started after her last admission where she had falls and skin tears. She says she has been released by Dr. Albarran but a home health nurse still comes in once a week to address her right giraldo shallow ulcer as well as a small sacral decubitus ulcer. her caregiver reports that she is often incontinent of urine and and wears depends and often refuses to be changedmore than 3 times a day Today,the patient declines Hall catheter as she is sure this will do more harm than good. July 01: overnight, the patient became quite agitated at times, and became very belligerent with staff, sometimes hitting them and yelling at them. She has very definite opinions on whether or not her depends need changing, whether her wounds need to be dressed, or whether she needs to be repositioned and argues aggressively with anyone who does not do exactly what she wants at the time. This morning she would not let physical therapy due to her initial evaluation, and said insisting that they let her transfer from bed to wheelchair in a manner that did not follow their guidelines. -she believes her breathing is a bit better than yesterday. She initially refused a Hall catheter, but finally allow that, when she realized how much the Lasix was making her urinate. -her urine still looksshe is chronically infected. I did ask Dr. Patricia of urology to evaluate her,to see if perhaps there is something structural that might be causing ongoing UTI. Dr. Patricia did not think it was worthpursuing any further workup and said not to treat her if she does not appear to be symptomatic. The patient did report some dysuria to her caregivers at home, but denied it here yesterday, prior to her Hall catheter. -our staff spoke with her sonLIZ, who lives in [place] now. He says that his mother is always quite difficult, and that he moved here to take care of her for 3 months,but could not get her to cooperate with things, so he finally left town. -she was quite upset this morning when we did not give her her metformin. This was held because they plan on pursuing aggressive diuresis. We are covering with sliding scale insulin. -d-dimer was checked last night, and in view of her shortness of breath and sedentary lifestyle. It was very minimally elevated above normal, and I do not feel warrants a CT angiogram. July 02: pt seen examined, no acute overnight events, still needing oxygen this AM, I/o negative, but not by lot. she feels better. Behavour warren she has been better today. she denies any new concerns, explains that she would prefer to be at [facility] , but that [facility] has declined her. Will increase dose of lasix to 40mg IV bid. Pertinent ROS: Denies headache, dizziness Denies chest pain, palpitations Denies cough or shortness of breath (shortness of breath improved) Denies abdominal pain, nausea or vomiting. - Constitutional Vitals: Vital Signs Temp Pulse Resp BP Pulse Ox 97.4 F 67 18 128/59 92 07/02/16 16:00 07/02/16 16:00 07/02/16 16:00 07/02/16 16:00 07/02/16 16:00 Period Temp Pulse Resp BP Sys/Manley Pulse Ox Last 24 Hr 96.2 F-98.1 F 64-73 16-18 121-137/50-73 90-100 Intake and Output 07/02/16 07/02/16 07/02/16 05:59 13:59 21:59 Intake Total 500 / 500 1060 / 1060 Output Total 850 / 850 1175 / 1175 Balance -350 / -350 1060 / 1060 -1175 / -1175 Weight 193 lb 8 oz Patient Weight 07/03/16 05:59 Weight 193 lb 8 oz Intake & Output: Intake & Output 07/02/16 07/02/16 07/02/16 05:59 13:59 21:59 Intake Total 500 / 500 1060 / 1060 Output Total 850 / 850 1175 / 1175 Balance -350 / -350 1060 / 1060 -1175 / -1175 Weight 193 lb 8 oz Intake: Oral 500 / 500 1060 / 1060 Output: Urine Catheter Amount 850 / 850 1175 / 1175 Other: Meal Lunch Percent of Meal Consumed 100% Feeding Ability Assist with Tray Set Up Exam: Constitutional; Afebrile, cooperative, alert, not in distress. Eyes- No icterus, , No periorbital swelling Ears- Ext ear normal, hearing normal to conversation. Neck- Midline trachea, supple Respiratory system: Air Entry equal on both sides, bibasilar crackles noted, no wheezing. CVS- Rate rhythm regular, S1,S2 heard, no gallop, no rub. Abdomen- Soft nontender abdomen, no organomegaly, no tenderness, no guarding or rigidity, large pannus SDE- AOOx3, moving all extremities, no gross focal deficit noted. Medical - PN: Obj Da - Labs CBC & Chem 7: 07/02/16 03:54 07/02/16 03:54 Labs: Abnormal Lab Results 07/02/16 07/02/16 07/01/16 03:54 03:54 04:35 RBC 3.47 L Hgb 10.2 L Hct 31.7 L RDW 16.2 H MPV 10.7 H Lymph % (Auto) 9.7 L Lymph # 0.5 L D-Dimer BUN 32 H 28 H Glucose 123 H 145 H GGT 38 H 40 H ALT 44 H Total Protein 5.3 L 5.4 L Albumin 3.0 L 3.1 L 07/01/16 06/30/16 04:34 18:30 RBC 3.32 L Hgb 9.7 L Hct 30.5 L RDW 16.9 H MPV 10.7 H Lymph % (Auto) 8.3 L Lymph # 0.5 L D-Dimer 0.41 H BUN Glucose GGT ALT Total Protein Albumin Meds: Medications Acetaminophen (Tylenol) 650 mg PO Q6HP PRN PRN Reason: PAIN/FEVER > 101 Acetaminophen/Hydrocodone Bitart ([place] 5/325mg) 1 tab PO TIDP PRN PRN Reason: Pain Aspirin (Aspirin) 81 mg PO DAILY [facility] Last Admin: 07/02/16 08:37 Dose: 81 mg Dextrose (Dextrose 50%) 0 ml IV UD PRN PRN Reason: Hypoglycemia Diagnostic Test (Pha) (Accu-Chek) 1 each FS ACHS [facility] Last Admin: 07/02/16 16:55 Dose: 1 each Docusate Sodium (Colace) 100 mg PO BID PRN PRN Reason: Constipation Enoxaparin Sodium (Lovenox) 40 mg SQ DAILY [facility] Last Admin: 07/02/16 08:36 Dose: 40 mg Furosemide (Lasix) 40 mg IV BIDD [facility] Glipizide (Glucotrol) 5 mg PO ACB [facility] Last Admin: 07/02/16 08:17 Dose: 5 mg Guaifenesin/Codeine Phosphate (Robitussin Ac) 5 ml PO Q4HP PRN PRN Reason: Cough Insulin Human Lispro (Humalog) 0 unit SQ ACHS [facility] PRN Reason: Protocol Last Admin: 07/02/16 16:56 Dose: Not Given Iron Carb/Multivit/Glass Cutter Hand/Folic Acid (Multivitamin W/Minerals) 1 tab PO DAILY [facility] Last Admin: 07/02/16 08:41 Dose: 1 tab Lisinopril (Zestril) 20 mg PO BID [facility] Last Admin: 07/02/16 08:36 Dose: 20 mg Lorazepam (Ativan) 0.5 mg PO Q4HP PRN PRN Reason: ANXIETY/SEDATION Magnesium Hydroxide (Milk Of Magnesia) 30 ml PO DAILYP PRN PRN Reason: Constipation Morphine Sulfate (Morphine) 1 mg IV Q1HP PRN PRN Reason: Shortness Of Breath Or Wheezing Naloxone HCl (Narcan) 0.1 mg IV Q2MIN PRN PRN Reason: Opiate Reversal Ondansetron HCl (Zofran Odt) 4 mg SL Q4HP PRN PRN Reason: Nausea And Vomiting Medical - PN: A/P - Time Spent With Patient Total time spent is greater than 50% in coordination of care (as documented) at patient's floor/unit and/or counseling patient: - Narrative A/P Narrative: Acute Diastolic Heart failure: IV lasix, patient responding well, increase lasix to 40mg bid, monitor labs, wean off oxygen as tolerated. Echo done april shows preserved ejection fraction Urinary tract infections: Sugar Laboratory Assistant contamination likely, consult appreciated, no need for treatment given she is asymptomatic at this time. Will refer to as outpatient. DM: Sliding scale insulin for now, resume home meds at discharge. Rheumatoid arthritis: continue home meds, pain well controlled. Disposition: Will review with case management dispo options, likely d/c to SNF vs Home with home health in AM if she is off oxygen. Code: Full code Diet Diabetic diet. DVT enoxaparin. Medical - PN: Qual - VTE Deep Vein Thrombosis/Pulmonary Embolism Present on Admission: No
[2016-07-02] MEDS: HYDROcodone/APAP 5/325MG TABLET PO PRN ×2 (19:46→23:59)
[2016-07-03 05:31] LABS: Basophils # (Auto) 0 K/mcL (0.0-0.3); Basophils % (Auto) 0.3 % (0.0-2.0); Eosinophils # (Auto) 0.4 K/mcL (0.0-0.7); Granulocytes % (Auto) 64.1 % (38.0-78.0); Lymphocytes # (Auto) 0.7 K/mcL (1.5-4.8); Lymphocytes % (Auto) 15.1 % (15.5-49.0); Mean Cell Volume 91.6 fL (80.0-100.0); Mean Corpuscular HGB Conc 32.1 g/dL (31.0-36.0); Mean Corpuscular Hemoglobin 29.4 pg (26.0-34.0); Monocytes # (Auto) 0.6 K/mcL (0.1-0.9); Monocytes % (Auto) 12.5 % (1.0-12.0); Platelet Count 156 K/mcL (140-440); RBC 3.48 M/mcL (4.00-5.20)
[2016-07-03 06:06] LABS: ALT/SGPT 28 U/l (0-40); Albumin/Globulin Ratio 1.3 (1.0-2.3); Alkaline Phosphatase 87 U/L (39-117); Bilirubin,Direct < 0.2 mg/dL (0.0-0.3); Blood Urea Nitrogen 35 mg/dl (8-23); Gamma Glutamyl Transpeptidase 36 U/L (5-36); Magnesium 2.1 mg/dL (1.6-2.5); Uric Acid 7.7 mg/dL (2.5-8.0)
[2016-07-03] MEDS: glipiZIDE 5 MG TABLET PO SCH (07:55)
[2016-07-03] MEDS: INSULIN LISPRO 1 UNIT/0.01 ML UNIT SQ SCH ×2 (07:59→11:54)
[2016-07-03] MEDS ORDERED: FUROSEMIDE 20 MG/2 ML VIAL IV SCH (08:00)
[2016-07-03] MEDS: ASPIRIN 81 MG TAB.CHEW PO SCH (08:46)
[2016-07-03] MEDS: LISINOPRIL 20 MG TABLET PO SCH (08:46)
[2016-07-03] MEDS: ENOXAPARIN 40 MG/0.4 ML SYRINGE SQ SCH (08:46)
[2016-07-03] MEDS: MULTIVIT,THER IRON,CA,FA & MIN 1 TABLET PO SCH (08:46)
[2016-07-03] MEDS: HYDROcodone/APAP 5/325MG TABLET PO PRN (13:02)
--- NOTE | 2016-07-03 14:06 | Discharge Summary ---
Medical - DS: Prov Patient information: Note initiated : 07/03/16 at 2:00 pm Service Date, if different from initiated Date: [] Patient: Raisa Sharma 89 y/o F admitted on 06/30/16 for SOB, Cough/UTI, Candidiasis, CHF. Chief Complaint: [] Date of admission: 06/30/16 13:45 Discharge date: 07/03/16 Primary care physician: Jennifer Franklin Admitting clinician: Cristel Sims Consults: 06/30/16 17:57 Consult to Physician [CONS] Routine Comment: UTI, resistant Consulting Provider: Hunter Patricia Reason For Exam: Physician to Consult Discharging clinician: Latisha Renee Medical - DS: Meds - Discharge Medications Prescriptions: Cephalexin [Keflex] 500 mg PO BID #20 capsule Furosemide [Lasix] 40 mg PO DAILY #30 tablet HYDROcodone/APAP 5/325MG [[place] 5/325Mg] 1 tab PO TIDP PRN #30 tablet PRN Reason: Pain Active and Home Medications: Home Medications aspirin 81 mg tablet,delayed release 81 mg PO QDAY tab 10/05/14 [History Confirmed 06/30/16 Last Taken 06/30/16] lisinopril 20 mg tablet 20 mg PO DAILY tab 10/05/14 [History Confirmed Last Taken 06/30/16] metformin 500 mg tablet 500 mg PO QIDP tab 10/05/14 [History Confirmed Last Taken 06/30/16] omega-3 fatty acids-fish oil 300 mg-1,000 mg capsule,delayed release 1 cap PO DAILY 10/05/14 [History Confirmed 06/30/16 Last Taken 06/30/16] Furosemide [Lasix] 20 mg PO DAILY 06/30/16 [History Confirmed 06/30/16 Last Taken 06/30/16] HYDROcodone/ACETAMINOPHEN [Hydrocodon-Acetaminophen 5-325] 1 tab PO TIDP PRN [History Confirmed 06/30/16 Last Taken 06/23/16] Multivitamin [Multi-Day Vitamins] 1 tab PO DAILY 06/30/16 [History Confirmed Last Taken 06/30/16] Red Yeast Rice 1 cap PO HS 06/30/16 [History Confirmed 06/30/16 Last Taken 06/29] glipiZIDE [Glucotrol] 5 mg PO DAILY 06/30/16 [History Confirmed 06/30/16 Last Taken 06/30/16] Medical - DS: Hosp Hospital course: Mr. Sharma is a 89 year old female with h/o c ad, chf, dm presented to the ER with shortness of breath and hypoxia. The patient had elevated bnp, neg troponin, chr UTI, t he patient cxr was ne g for pna. she was admit adina to the hospital for acute congestive heart failure. CHF: LVEF preserved, diastolic dysfunction present. Patient was treated with IV lasix with good response. Her breathing improved. She will be discharged on lasix 40mg once daily (she was on 20mg once daily before). The patients potassium was stable in the hospital, and therefore no KCL supplement is given, PCP to check bmp in 7 days to evaluate renal function as well as electrolyte level. Patient at the time of discharge was back to her usual baseline and was off oxygen. UTI: The patient has chr recurrent UTI, the patient denies any active symptom, but in light of polymicrobial culture, Dr Patricia evaluated her. The patient will follow up with him as outpatient, he did not recommend any treatment. The patient urine culture was positive for pansensitive ecoli, she had a mild temp during this stay, she will be treated with keflex 500mg bid x 10 days. Follow up with urology as outpatient. The rest of the patients stay was uneventful. No changes in home meds done except as mentioned above. Discharge diagnosis: CHF - Time Spent with Patient Total time spent providing and/or coordinating discharge services: Greater than 30 minutes Medical - DS: Exam - Constitutional Vitals: Vital Signs Temp Pulse Resp BP Pulse Ox 07/03/16 12:00 99.2 F H 63 18 125/50 92 07/03/16 07:23 93 07/03/16 06:54 97.1 F 61 18 146/59 96 07/03/16 04:00 96.5 F L 103 H 16 92 07/03/16 00:00 97.1 F 61 20 129/56 95 07/02/16 21:21 97 07/02/16 19:58 98.7 F 69 18 125/51 95 07/02/16 16:00 97.4 F 67 18 128/59 92 Intake and Output 07/03/16 07/03/16 07/03/16 05:59 13:59 21:59 Intake Total 760 / 760 Output Total 1999 1150 / 1150 Balance -1999 -390 / -390 Intake: Oral 760 / 760 Output: Urine Catheter Amount 1999 1150 / 1150 Other: Meal Lunch Percent of Meal Consumed 100% Feeding Ability Independent Additional comments: Constitutional; Afebrile, cooperative, alert, not in distress. Eyes- No icterus, , No periorbital swelling Ears- Ext ear normal, hearing normal to conversation. Neck- Midline trachea, supple Respiratory system: Air Entry equal on both sides, No crackles or wheezing, no rhonchi. CVS- Rate rhythm regular, S1,S2 heard, no gallop, no rub. Abdomen- Soft nontender abdomen, no organomegaly, no tenderness, no guarding or rigidity, LADLE WATCHER- AOOx3, moving all extremities, no gross focal deficit noted. Medical - DS: Data Labs on day of discharge: Labs from last 24 hours 07/03/16 07/03/16 04:48 04:48 WBC 4.5 RBC 3.48 L Hgb 10.2 L Hct 31.9 L MCV 91.6 MCH 29.4 MCHC 32.1 RDW 16.0 H Plt Count 156 MPV 10.3 Gran % 64.1 Lymph % (Auto) 15.1 L Riley % (Auto) 12.5 H Eos % (Auto) 8.0 H Baso % (Auto) 0.3 Gran # 2.9 Lymph # 0.7 L Riley # 0.6 Eos # 0.4 Baso # 0 Sodium 139 Potassium 4.5 Chloride 99 Carbon Dioxide 30 Anion Gap 10.0 BUN 35 H Creatinine 1.0 GFR Calculation 50 Glucose 134 H Uric Acid 7.7 Calcium 9.1 Phosphorus 4.0 Magnesium 2.1 Total Bilirubin 0.3 Direct Bilirubin < 0.2 GGT 36 AST 15 ALT 28 Alkaline Phosphatase 87 Lactate Dehydrogenase 173 Total Protein 5.4 L Albumin 3.0 L Globulin 2.4 Albumin/Globulin Ratio 1.3 Triglycerides 68 Medical - DS: A/P - Patient/Caregiver Discharge Instructions Activity: as per physical therapy, increase activity as tolerated Diet: Low Sodium (2gm), Cardiac, Consistent Carbohydrate Additional Instructions: Follow up with PCP in 7-10 days Follow up with Dr Patricia as per previous schedule Take antibiotic for total of 10 days go to the ER if any new concern, worsening shortness of breath or chest pains. Reccommend PCP check BMP in 7 days to follow up in renal function and electrolytes. - Follow up Plan Follow up with: Jennifer Franklin MD [Primary Care Provider] - Disposition: Xfer SNF Prognosis: Fair Rehab Potential: Fair I certify that the patient requires SNF services: Yes Overall status at discharge: patient is progressing back to baseline Medical - DS: Qual - VTE Deep Vein Thrombosis/Pulmonary Embolism Present on Admission: No
== END 2016-07-03 15:20 | DRG 292 ==
LOC: ED 08:23 → ICU 13:45
PROVIDERS: ADMIT Internal Medicine; ATTEND Internal Medicine